=== PATIENT | female | born 2000 | race Caucasian/White ===

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

== ENCOUNTER 2022-04-20 18:06 | Emergency (ER) | payer OTHER, SELFPAY ==
[2022-04-20 18:10] VITALS: BP 109/67; PULSE 92; RESP 16; TEMP 37.2; O2SAT 100
--- NOTE | 2022-04-20 18:54 | ED.GENADULT ---
HPI - General Adult General Chief complaint: Skin/Abscess/Foreign Body Stated complaint: rash/sunburn Source: patient Mode of arrival: ambulatory Limitations: no limitations History of Present Illness HPI narrative: Patient presents for evaluation of skin issues. She states she was working outdoors 2 days ago when she developed a sunburn to her shoulders and back. She has experienced blistering in the affected area since that time. She has been applying aloe. She is also taking ibuprofen but states it is ineffective in pain reduction. She states her pain is interfering with her sleep pattern. She also states she was exposed to poison bret the same day and now has allergic response to her arms, abdomen and legs. She has had allergic response to poison bret in the past. In the past she tried topical steroid creams and had difficulty getting it to go away. Related Data Home Medications Medication Instructions Recorded Confirmed etonogestrel 68 mg subdermal 1 implant subdermal ONCE 06/26/20 04/20/22 implant (Nexplanon) Allergies Allergy/AdvReac Type Severity Reaction Status Date / Time No Known Allergies Allergy Verified 04/20/22 18:10 Review of Systems Review of Systems: CONSTITUTIONAL: Denies fever, chills, or sweats. EYES: Denies visual changes, redness, or discharge. ENT: Denies rhinorrhea, congestion, sore throat, or otalgia. CARDIOVASCULAR: Denies chest pain, palpitations, or edema. RESPIRATORY: Denies cough or dyspnea. GASTROINTESTINAL: Denies abdominal pain, nausea, vomiting, or diarrhea. GENITOURINARY: Denies dysuria or hematuria. SKIN: Reports sunburn to the bilateral shoulders and back. Reports itching and redness of bilateral upper and lower extremities and abdomen MUSCULOSKELETAL: Denies back pain, joint pain, or myalgia. NEUROLOGIC: Denies headache, numbness, dizziness, or weakness. PSYCHIATRIC: Denies anxiety or depression. [facility] Past Medical History Medical History Anxiety Depression Migraine Nexplanon insertion 11/21/2017 12/03/2019 Nexplanon removal 12/09/18 Partial thickness sunburn Surgical History Surgical History History of placement of ear tubes Family History Family History Mother No pertinent past medical history Social History Social History (Updated 04/20/22 @ 19:16 by Carlos Johnson, ELIZABETH, ) Smoking status: Current some day smoker Tobacco type: e-cigarettes/vaping Substance use: never Additional living arrangements comments: lives with boyfriend Gender identity (if verbalized by the patient): Female Sexual Orientation (if Verbalized by the Patient): Straight or Heterosexual Spiritual care concerns: No Exam Narrative: GENERAL: Well-appearing, well-nourished, and in no acute distress. HEAD: Normocephalic, atraumatic. EYES: PERRLA and EOMI. ENT: Nares clear, no rhinorrhea or epistaxis. Mucous membranes moist. Oropharynx without tonsillar hypertrophy exudate or other lesions. Bilateral TMs pearly bowden nonbulging NECK: Supple. No adenopathy or masses. No carotid bruits or JVD CHEST: Clear to auscultation. No respiratory distress. No wheezes rales or rhonchi HEART: Regular rate and rhythm. No murmur heard. Normal peripheral pulses. ABDOMEN: Soft, nontender, nondistended, normal active bowel sounds. EXTREMITIES: Normal range of motion. No edema. SKIN: There is erythema and blistering to the bilateral shoulders, scapulas and along posterior ribs bilaterally. This does not involved thoracic spinal region or overlying paraspinous muscles. There are streaking linear areas of erythema noted to bilateral upper and lower extremities. There are patchy areas of erythema streaking noted to the abdomen NEURO: No focal deficits. Alert and oriented x3. PSYCH: Normal mood and affect
== END 2022-04-20 18:47 | disposition home or self-care (01) ==
PROVIDERS: Emergency Provider Nurse Practitioner; PCP Pediatrics
DX: L23.7 Allergic contact dermatitis due to plants, except food (principal); L55.1 Sunburn of second degree; F17.290 Nicotine dependence, other tobacco product, uncomplicated
CPT/HCPCS: 99213; G0463

== ENCOUNTER 2022-12-27 16:59 | Outpatient (CLI) | payer OTHER, SELFPAY | END 2022-12-27 17:00 | disposition home or self-care (01) | LOC: ANHLAB 17:01 | PROVIDERS: PCP Pediatrics; Visit Provider Student in an Organized Health Care Education/Training Program | DX: R30.0 Dysuria (principal) | CPT/HCPCS: 87086; 87088 ==

== ENCOUNTER 2023-02-21 11:46 | Emergency (ER) | payer OTHER, SELFPAY ==
[2023-02-21 11:55] VITALS: BP 120/73; PULSE 128; RESP 20; TEMP 37.8; O2SAT 99
--- NOTE | 2023-02-21 12:15 | ED.URI ---
HPI - URI/Sore Throat General Chief Complaint: Upper Respiratory Infection Stated Complaint: Sore Throat/Back Pain/Fever Time Seen by Provider: 02/21/23 12:15 Source: patient Mode of arrival: ambulatory Limitations: no limitations History of Present Illness HPI Narrative: Patient is a 22-year-old female that presents with sore throat, ear fullness, cough and rib pain since last night. Patient states she had a fever of 102 at home last night, and fever was 99 at home this morning. Patient states sore throat, hoarseness is worsening today. Reports her ribs feel like they are being crushed inward and is tearful in room. Has taken ibuprofen at 9:00 a.m. this morning with no relief. Denies any congestion, shortness of breath, nausea, vomiting, diarrhea. Denies any sick contacts. Patient also reports frequent UTIs but states they never felt like this. Patient follows urology at [facility] and reports she has a refillable prescription for UTIs from a urologist, has no follow up appointment and was told she was too young for a cystoscopy. Denies any burning with urination, frequency, urgency. Related Data Home Medications Medication Instructions Recorded Confirmed etonogestrel 68 mg subdermal 1 implant subdermal ONCE 06/26/20 02/21/23 implant (Nexplanon) Allergies Allergy/AdvReac Type Severity Reaction Status Date / Time No Known Allergies Allergy Verified 02/21/23 11:59 Review of Systems Review of Systems: All systems reviewed & are unremarkable except as noted in HPI and below Constitutional: Constitutional: Reports body ache(s), Reports fever(s), Denies headache(s), Denies malaise and Denies weakness Eyes: Eyes: Denies loss of vision ENT: Denies otalgia, Denies headache(s), Denies nasal congestion, Denies sinus pain and Reports sore throat Cardiovascular: Cardiovascular: Denies chest pain, Denies irregular heart rhythm and Denies dyspnea Respiratory: Respiratory: Reports cough and Denies dyspnea Gastrointestinal: Gastrointestinal: Denies abdominal pain, Denies melena, Denies hematochezia, Denies diarrhea, Denies nausea and Denies vomiting Musculoskeletal: Musculoskeletal: Denies back pain, Denies myalgias and Denies arthralgias Integumentary/Breasts: Skin/Breast: Denies pruritus and Denies rash Neurologic: Denies headache(s), Denies loss of vision and Denies weakness Psychiatric: Psychiatric: Reports no additional psychiatric complaints PMFSH Past Medical History Medical History (Updated 02/21/23 @ 13:02 by Maci Soria APRN) Anxiety Depression Encounter for adjustment and management of other implanted devices Migraine Nexplanon insertion 11/21/2017 12/03/2019 Nexplanon removal 12/09/18 Partial thickness sunburn Surgical History Surgical History (Updated 12/02/22 @ 10:13 by Sylwia Betancourt CMA) History of placement of ear tubes Hx of tonsillectomy Family History Family History Mother No pertinent past medical history Social History Social History Smoking status: Current some day smoker Tobacco type: e-cigarettes/vaping Substance use: never Additional living arrangements comments: lives with boyfriend Gender identity (if verbalized by the patient): Female Sexual Orientation (if Verbalized by the Patient): Straight or Heterosexual Spiritual care concerns: No Comments At time of signature, agree with nursing past medical, surgical, social and family history. There is no relevant family history pertinent to the presenting complaint. Exam Const: General: cooperative, healthy appearing, comfortable, no acute distress and well nourished Nutritional Appearance: well nourished Orientation/consciousness: patient oriented x3 Limitations: no limitations HENMT: Head: normal to inspection, normocephalic and atraumatic Ears: external ears normal and TM's normal bilatera
== END 2023-02-21 13:15 | disposition home or self-care (01) ==
PROVIDERS: Emergency Provider Nurse Practitioner Family; PCP Pediatrics
DX: N39.0 Urinary tract infection, site not specified (principal); J02.9 Acute pharyngitis, unspecified; Z20.822 Contact with and (suspected) exposure to COVID-19; F17.290 Nicotine dependence, other tobacco product, uncomplicated
CPT/HCPCS: 81003; 87077; 87081; 87086; 87186; 87426; 87804; 87880; 99213; C9803; G0463

== ENCOUNTER 2023-04-01 08:06 | Emergency (ER) | payer OTHER, SELFPAY ==
--- NOTE | 2023-04-01 08:07 | ED.SKABFB ---
HPI - Skin/Abscess/Foreign Bdy General Chief complaint: Skin/Abscess/Foreign Body Stated complaint: Rash Time Seen by Provider: 04/01/23 08:07 Source: patient Mode of arrival: ambulatory Limitations: no limitations History of Present Illness HPI narrative: Glo is a 22-year-old female patient presenting to the clinic today with complaints of a rash over the last 1-2 days. She reports she is unaware if this may be poison bret versus scabies. 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 Has had scabies and poison bret before. Has not been anywhere that she has been exposed to poison bret. States that her boyfriend has had scabies recently as well. Related Data Home Medications Medication Instructions Recorded Confirmed etonogestrel 68 mg subdermal 1 implant subdermal ONCE 06/26/20 04/01/23 implant (Nexplanon) Allergies Allergy/AdvReac Type Severity Reaction Status Date / Time No Known Allergies Allergy Verified 02/21/23 11:59 Review of Systems Review of Systems: Pertinent positives per HPI. Patient denies any fever, chills, headache, visual changes, dizziness, cough, runny nose, sore throat, shortness of breath, chest pain, palpitations, nausea, vomiting, diarrhea, constipation, abdominal pain, or any urinary issues. [facility] Past Medical History Medical History Anxiety Depression Encounter for adjustment and management of other implanted devices Migraine Nexplanon insertion 11/21/2017 12/03/2019 Nexplanon removal 12/09/18 Partial thickness sunburn Surgical History Surgical History History of placement of ear tubes Hx of tonsillectomy Family History Family History Mother No pertinent past medical history Social History Social History Smoking status: Current some day smoker Tobacco type: e-cigarettes/vaping Substance use: never Additional living arrangements comments: lives with boyfriend Gender identity (if verbalized by the patient): Female Sexual Orientation (if Verbalized by the Patient): Straight or Heterosexual Spiritual care concerns: No Comments At the time of my signature, I reviewed and agree with the nursing past medical, surgical, social, and family history. There is no relevant family history pertinent to the patient complaint. Exam Narrative: General: Well-developed, well nourished, in no apparent distress Head: Normocephalic, atraumatic. Cardio: Regular rate and rhythm, s1 and s2 normal, no murmur appreciated. Resp: Clear to auscultation bilaterally, no rhonchi, rales, wheezing or rubs. Integumentary: Regino Ramirez, warm, and dry, intact without lesion, red,itchy, mildly raised, burrows like presentation to the hands, forearms, upper arm, right anterior chest wall, and right axilla Course Course Emergency Course: Portions of this record may have been created with voice recognition software. Level of Care: Express Care Visit Vital Signs Vital signs: Vital signs reviewed MDM - Skin/Abscess/Foreign Bdy MDM Narrative Medical decision making narrative: At the time of visit patient is resting comfortably on the exam table. I suspect patient has a scabies infestation. Will send in prescription for prednisone and permethrin cream. Supportive measures were discussed with the patient she voiced understanding of discharge instructions and agrees to treatment plan Differential Diagnosis Differential diagnosis: Likely abscess of skin or subcutaneous tissue, urticaria, allergic reaction to drug, cellulitis, eczema, insect bites, impetigo, contact dermatitis and other (Scabies) Discharge Plan Discharge Clinical Impression: Scabies Patient Disposition: Home, Self-Care Condition: Stable Instructions: Antibiotic Form, Scabi
[2023-04-01 08:15] VITALS: BP 117/73; PULSE 120; RESP 16; TEMP 37.2; O2SAT 99
== END 2023-04-01 08:27 | disposition home or self-care (01) ==
PROVIDERS: Emergency Provider Nurse Practitioner Family; PCP Pediatrics
DX: B86 Scabies (principal); F17.219 Nicotine dependence, cigarettes, with unspecified nicotine-induced disorders
CPT/HCPCS: 99213; G0463

== ENCOUNTER 2023-06-09 09:03 | Emergency (ER) | payer OTHER, SELFPAY ==
--- NOTE | 2023-06-09 09:09 | ED.FEMALEGU ---
HPI - Female Genitourinary General Chief complaint: Urogenital-Female Stated complaint: UTI Time Seen by Provider: 06/09/23 09:33 Source: patient and RN notes reviewed Mode of arrival: ambulatory Limitations: no limitations History of Present Illness HPI Narrative: 22-year-old female presents with concern for urinary tract infection. She reports history of frequent UTIs, her last UTI in February. She reports fever, chills, back pain, abdominal discomfort, nausea. She denies abnormal vaginal discharge. MD elicited complaint: UTI Related Data Home Medications Medication Instructions Recorded Confirmed etonogestrel 68 mg subdermal 1 implant subdermal ONCE 06/26/20 06/09/23 implant (Nexplanon) Allergies Allergy/AdvReac Type Severity Reaction Status Date / Time No Known Allergies Allergy Verified 06/09/23 09:17 Review of Systems Review of Systems: CONSTITUTIONAL: Reports malaise, chills, sweats, fever. CARDIOVASCULAR: Denies chest pain, palpitations, or edema. RESPIRATORY: Denies cough or dyspnea. GASTROINTESTINAL: Denies abdominal pain, vomiting, diarrhea. Reports nausea GENITOURINARY: Reports dysuria. Denies frequency, urgency, suprapubic pressure. Denies flank pain or hematuria. SKIN: Denies rash or itching. MUSCULOSKELETAL: Reports back pain, myalgia. All systems reviewed & are unremarkable except as noted in HPI and below PMFSH Past Medical History Medical History Anxiety Depression Encounter for adjustment and management of other implanted devices Migraine Nexplanon insertion 11/21/2017 12/03/2019 Nexplanon removal 12/09/18 Partial thickness sunburn Surgical History Surgical History History of placement of ear tubes Hx of tonsillectomy Family History Family History Mother No pertinent past medical history Social History Social History Smoking status: Current some day smoker Tobacco type: e-cigarettes/vaping Substance use: never Additional living arrangements comments: lives with boyfriend Gender identity (if verbalized by the patient): Female Sexual Orientation (if Verbalized by the Patient): Straight or Heterosexual Spiritual care concerns: No Comments At time of signature, agree with nursing past medical, surgical, social and family history. There is no relevant family history pertinent to the presenting complaint Exam Narrative: GENERAL: Well-appearing, well-nourished, and in no acute distress. HEAD: Normocephalic. EYES: PERRLA, conjunctivae clear. NECK: Supple. No lymphadenopathy CHEST: Clear to auscultation. No respiratory distress. HEART: Regular rate and rhythm. ABDOMEN: Soft, suprapubic discomfort, nondistended, normal active bowel sounds, no palpable or pulsatile masses, no guarding. Mild bilateral cVA tenderness SKIN: Warm, dry, no rash. NEURO: Alert and oriented x3. PSYCH: Normal mood and affect Course Course Emergency Course: Patient is aware of diagnosis, understands and agrees to treatment plan. Anticipatory guidance given. Patient agrees to follow-up as directed and is aware of reasons to seek care at the emergency department. Portions of this record may have been created with voice recognition software Level of Care: Express Care Visit Vital Signs Vital signs: Reviewed. MDM - Female Genitourinary MDM Narrative Medical decision making narrative: Exam findings and UA show no acute concerns or changes; patient is non-toxic appearing and is in no distress. Patient is appropriate for outpatient treatment and follow-up. Differential Diagnosis Differential diagnosis: Likely urinary tract infection and cystitis Critical Care Time Critical Care Time Critical Care Time: No Discharge Axel
[2023-06-09 09:20] VITALS: BP 104/68; PULSE 115; RESP 16; TEMP 36.9; O2SAT 100
== END 2023-06-09 09:46 | disposition home or self-care (01) ==
PROVIDERS: Emergency Provider Nurse Practitioner; PCP Family Medicine
DX: N39.0 Urinary tract infection, site not specified (principal); F17.290 Nicotine dependence, other tobacco product, uncomplicated
CPT/HCPCS: 81003; 87077; 87086; 87186; 99213; G0463

== ENCOUNTER 2023-07-03 15:07 | Emergency (ER) | payer OTHER, SELFPAY ==
[2023-07-03 15:08] VITALS: BP 116/68; PULSE 92; RESP 22; TEMP 36.3; O2SAT 100
[2023-07-03 15:33] LABS: Basophils Percent Auto 0.5 % (0.2-1.2); Eosinophils Percent Auto 0.4 % (0-4.4); Hematocrit 42.8 % (37.0-47.0); Hemoglobin 14.8 g/dL (12.0-15.0); Immature Granulocyte Absolute 0.02 K/mm3 (0.00-0.031); Immature Granulocyte Percent A 0.2 % (0-0.5); Lymphocytes Absolute Auto 1.85 K/mm3 (0.9-3.2); Lymphocytes Percent Auto 21.9 % (18.3-44.2); Mean Corpuscular HGB Conc 34.6 g/dl (32-36); Mean Corpuscular Hemoglobin 32.2 pg (26-34); Mean Platelet Volume 9.1 fl (7.4-10.4); Monocytes Absolute Auto 0.6 K/mm3 (0.1-0.6); Monocytes Percent Auto 6.9 % (2.6-8.5); Neutrophils Absolute Auto 5.9 K/mm3 (1.3-6.7); Neutrophils Percent Auto 70.1 % (45.5-73.1); Platelet Count Result 391 k/mm3 (150-375); Red Cell Distribution Width 11.8 % (11.5-14.5); White Blood Count 8.4 K/mm3 (4.5-10.0)
[2023-07-03 15:42] LABS: Ethanol < 10 mg/dL (<10)
[2023-07-03 15:42] LABS: Alanine Aminotransferase 22 U/L (6-35); Albumin Level 4.7 g/dL (3.5-5.1); Alkaline Phosphatase 60 U/L (38-126); Anion Gap 11 mmol/L (8-16); Aspartate Amino Transferase 30 U/L (14-36); Bilirubin,Total 2.2 mg/dL (0.2-1.3); Blood Urea Nitrogen 14 mg/dL (7-17); Calcium 9.4 mg/dL (8.4-10.2); Carbon Dioxide 24 mmol/L (22-30); Chloride 101 mmol/L (98-107); Estimated CRCL calculation 94 ml/min; Estimated Glomerular Filt Rate > 60; Glucose 103 mg/dL (65-110); Sodium 136 mmol/L (137-145)
[2023-07-03 16:02] LABS: Appearance Urine Clear (Clear); Bacteria Urine None Seen /hpf; Bilirubin Urine Negative (Negative); Blood Urine 3+ (Negative); Color Urine Yellow (Yellow); Glucose Urine UA Negative (Negative); Ketones Urine Negative (Negative); Leukocyte Esterase Ur Negative LEU/UL (Negative); Nitrate Urine Negative (Negative); Non Pathogenic Casts 0-2; Protein Urine Negative (Negative); Specific Grav Ur 1.019 (1.001-1.035); Squamous Epithelial Cell Urine Occasional /hpf (Few); Urobilinogen Urine 0.2 mg/dL (<2.0); WBC Urine 0-5 /hpf
[2023-07-03 16:06] LABS: Add Urine Microscopic? YES
[2023-07-03 16:09] LABS: Influenza A QL RT-PCR Negative (Negative); Influenza B QL RT-PCR Negative (Negative); SARS-CoV-2 RNA PCR Positive (Negative)
[2023-07-03 16:12] LABS: Barbiturate Screen Urine Negative (Negative)
[2023-07-03 16:20] LABS: Benzodiazepines Screen Urine Negative (Negative)
[2023-07-03 16:27] LABS: Cannabinoid Screen Urine Positive (Negative); Cocaine Screen Urine Negative (Negative); Methadone Screen Urine Negative (Negative); Opiate Screen Urine Negative (Negative); Phencyclidine Screen Urine Negative (Negative)
--- NOTE | 2023-07-03 16:50 | ED.ANXIETY ---
HPI - Anxiety General Chief Complaint: Anxiety Stated Complaint: anxiety, depression Time Seen by Provider: 07/03/23 16:10 History of Present Illness HPI narrative: Patient is a 22-year-old female with a history of anxiety, depression presenting with anxiety. Patient states that she has a history of depression and anxiety. She was on sertraline several years ago but she had to discontinue it due to financial reasons. States that on Friday she went on a drinking binge and since that time has been unable to control her anxiety. She denies SI or HI. States that normally she is able to calm herself down but she has not been able to. States that she has chest tightness associated with anxiety. She called her PCP today who advised that she come in for evaluation. Denies further complaints. Related Data Home Medications Medication Instructions Recorded Confirmed etonogestrel 68 mg subdermal 1 implant subdermal ONCE 06/26/20 06/09/23 implant (Nexplanon) Allergies Allergy/AdvReac Type Severity Reaction Status Date / Time No Known Allergies Allergy Verified 06/09/23 09:17 Review of Systems Review of Systems: All systems reviewed & are unremarkable except as noted in HPI and below PMFSH Past Medical History Medical History Anxiety Depression Encounter for adjustment and management of other implanted devices Migraine Nexplanon insertion 11/21/2017 12/03/2019 Nexplanon removal 12/09/18 Partial thickness sunburn Surgical History Surgical History History of placement of ear tubes Hx of tonsillectomy Family History Family History Mother No pertinent past medical history Social History Social History Smoking status: Current some day smoker Tobacco type: e-cigarettes/vaping Substance use: never Additional living arrangements comments: lives with boyfriend Gender identity (if verbalized by the patient): Female Sexual Orientation (if Verbalized by the Patient): Straight or Heterosexual Spiritual care concerns: No Exam Narrative: GENERAL: Well-appearing, well-nourished, and in no acute distress. Pleasant and cooperative HEAD: Normocephalic, atraumatic. EYES: PERRLA and EOMI. ENT: Nares clear, no rhinorrhea or epistaxis. Mucous membranes moist. NECK: Supple. CHEST: No respiratory distress. HEART: Regular rate and rhythm ABDOMEN: Nondistended EXTREMITIES: Normal range of motion. No edema. SKIN: Warm, dry, no rash. NEURO: No focal deficits. Alert and oriented x3. PSYCH: Anxious, no SI/HI Course Vital Signs Vital signs: Vital Signs Temperature 97.3 F L 07/03/23 15:08 Pulse Rate 92 07/03/23 15:08 Respiratory Rate 22 H 07/03/23 15:08 Blood Pressure 116/68 07/03/23 15:08 Pulse Oximetry 100 07/03/23 15:08 Temperature 97.3 F L 07/03/23 15:08 Pulse Rate 92 07/03/23 15:08 Respiratory Rate 22 H 07/03/23 15:08 Blood Pressure 116/68 07/03/23 15:08 Pulse Oximetry 100 07/03/23 15:08 MDM - Anxiety MDM Narrative Medical decision making narrative: Patient is a 22-year-old female presenting with anxiety. Vitals are stable. Exam remarkable for the above. Patient denies SI or HI. States that she really just needs something to help calm herself down. States that she has an appointment with a psychiatrist in a few weeks. Blood work is unremarkable. UA is unremarkable. Patient is positive for COVID-19. She denies any symptoms related to this. We will give a dose of Atarax and send in for a short prescription. Appropriate return precautions given. Patient feels comfortable going home and will follow-up closely with her PCP. Discharged in stable condition. Differential Diagnosis Differential diagnosis: Likely hyperventilation,
[2023-07-03 17:04] LABS: Amphetamine Screen Urine Negative (Negative)
[2023-07-03] MEDS: hydrOXYzine HCL 25 MG TABLET PO (17:20)
== END 2023-07-03 17:30 | disposition home or self-care (01) ==
PROVIDERS: Student in an Organized Health Care Education/Training Program; Emergency Provider Emergency Medicine; PCP Family Medicine
DX: F41.9 Anxiety disorder, unspecified (principal); U07.1 COVID-19; F17.290 Nicotine dependence, other tobacco product, uncomplicated
CPT/HCPCS: 36415; 80053; 80307; 81001; 81025; 84443; 85025; 87636; 99283; A9270

== ENCOUNTER 2023-08-02 12:02 | Emergency (ER) | payer OTHER, SELFPAY ==
[2023-08-02 12:09] VITALS: BP 92/76; PULSE 100; RESP 16; TEMP 36.9; O2SAT 100
--- NOTE | 2023-08-02 12:29 | ED.FEMALEGU ---
HPI - Female Genitourinary General Chief complaint: Urogenital-Female Stated complaint: UTI Time Seen by Provider: 08/02/23 12:23 Source: patient and RN notes reviewed Mode of arrival: ambulatory Limitations: no limitations History of Present Illness HPI Narrative: 22-year-old female presents concern for urinary tract infection. She reports history of frequent urinary tract infections. She reports bilateral low back pain, chills, nausea. She denies frequency, urgency, dysuria. Reports these are typical for her symptoms when she gets urinary tract infection. MD elicited complaint: UTI Related Data Home Medications Medication Instructions Recorded Confirmed etonogestrel 68 mg subdermal 1 implant subdermal ONCE 06/26/20 08/02/23 implant (Nexplanon) Allergies Allergy/AdvReac Type Severity Reaction Status Date / Time No Known Allergies Allergy Verified 08/02/23 12:17 Review of Systems Review of Systems: CONSTITUTIONAL: Denies malaise, sweats, or fever. Reports chills CARDIOVASCULAR: Denies chest pain, palpitations, or edema. RESPIRATORY: Denies cough or dyspnea. GASTROINTESTINAL: Denies abdominal pain, vomiting, diarrhea. Reports nausea GENITOURINARY: Denies dysuria, frequency, urgency, suprapubic pressure. Denies flank pain or hematuria. SKIN: Denies rash or itching. MUSCULOSKELETAL: Reports bilateral low back pain. Denies myalgia. All systems reviewed & are unremarkable except as noted in HPI and below PMFSH Past Medical History Medical History Anxiety Depression Encounter for adjustment and management of other implanted devices Migraine Nexplanon insertion 11/21/2017 12/03/2019 Nexplanon removal 12/09/18 Partial thickness sunburn Surgical History Surgical History History of placement of ear tubes Hx of tonsillectomy Family History Family History Mother No pertinent past medical history Social History Social History Smoking status: Current some day smoker Tobacco type: e-cigarettes/vaping Substance use: never Additional living arrangements comments: lives with boyfriend Gender identity (if verbalized by the patient): Female Sexual Orientation (if Verbalized by the Patient): Straight or Heterosexual Spiritual care concerns: No Comments At time of signature, agree with nursing past medical, surgical, social and family history. There is no relevant family history pertinent to the presenting complaint Exam Narrative: GENERAL: Well-appearing, well-nourished, and in no acute distress. HEAD: Normocephalic. EYES: PERRLA, conjunctivae clear. NECK: Supple. No lymphadenopathy CHEST: Clear to auscultation. No respiratory distress. HEART: Regular rate and rhythm. ABDOMEN: Soft, nontender upon palpation, nondistended, normal active bowel sounds, no palpable or pulsatile masses, no guarding. Bilateral CVA tenderness SKIN: Warm, dry, no rash. NEURO: Alert and oriented x3. PSYCH: Normal mood and affect Course Course Emergency Course: Discussed UA results with patient discussed waiting list start antibiotic for urine culture results versus starting antibiotic now. Patient prefers to start antibiotic now because she feels that these are very consistent with her UTI symptoms. Patient is aware of diagnosis, understands and agrees to treatment plan. Anticipatory guidance given. Patient agrees to follow-up as directed and is aware of reasons to seek care at the emergency department. Portions of this record may have been created with voice recognition software Level of Care: Express Care Visit Vital Signs Vital signs: Vital Signs Temperature 98.4 F 08/02/23 12:09 Pulse Rate 100 08/02/23 12:09 Respiratory Rate 16 08/02/23 12:09 [place]
== END 2023-08-02 12:35 | disposition home or self-care (01) ==
PROVIDERS: Emergency Provider Nurse Practitioner; PCP Family Medicine
DX: M54.50 Low back pain, unspecified (principal); R68.83 Chills (without fever); R11.0 Nausea; F17.219 Nicotine dependence, cigarettes, with unspecified nicotine-induced disorders
CPT/HCPCS: 81003; 81025; 87086; 87088; 99213; G0463

== ENCOUNTER 2023-11-10 17:14 | Emergency (ER) | payer SELFPAY ==
[2023-11-10 17:26] VITALS: BP 109/76; PULSE 86; RESP 18; TEMP 37.2; O2SAT 100
--- NOTE | 2023-11-10 17:48 | ED.FEMALEGU ---
HPI - Female Genitourinary General Chief complaint: Urogenital-Female Stated complaint: urinary issue Time Seen by Provider: 11/10/23 17:49 Source: patient Mode of arrival: ambulatory Limitations: no limitations History of Present Illness HPI Narrative: 23-year-old female presents complaint of urinary frequency, dysuria, strong odor to urine for 2 days. Afebrile. History of several UTIs. Last 1 was about a month ago. Does have a urologist. denies nausea vomiting, no abdominal pain. All systems reviewed and negative except as noted above. Related Data Allergies Allergy/AdvReac Type Severity Reaction Status Date / Time No Known Allergies Allergy Verified 11/10/23 17:32 Review of Systems Review of Systems: CONSTITUTIONAL: Denies fever, chills, or sweats. EYES: Denies visual changes, redness, or discharge. ENT: Denies rhinorrhea, congestion, sore throat, or otalgia. CARDIOVASCULAR: Denies chest pain, palpitations, or edema. RESPIRATORY: Denies cough or dyspnea. GASTROINTESTINAL: Denies abdominal pain, nausea, vomiting, or diarrhea. GENITOURINARY: Reports dysuria, frequency . Denies hematuria. SKIN: Denies rash or itching. MUSCULOSKELETAL: Denies back pain, joint pain, or myalgia. NEUROLOGIC: Denies headache, numbness, or weakness. PSYCHIATRIC: Denies anxiety or depression. All other systems reviewed are negative, except as documented in HPI. FOR[facility]LY [facility], [facility] Past Medical History Medical History Anxiety Depression Encounter for adjustment and management of other implanted devices Migraine Nexplanon insertion 11/21/2017 12/03/2019 Nexplanon removal 12/09/18 Partial thickness sunburn Surgical History Surgical History History of placement of ear tubes Hx of tonsillectomy Family History Family History Mother No pertinent past medical history Social History Social History Smoking status: Current some day smoker Tobacco type: e-cigarettes/vaping Substance use: never Additional living arrangements comments: lives with boyfriend Gender identity (if verbalized by the patient): Female Sexual Orientation (if Verbalized by the Patient): Straight or Heterosexual Spiritual care concerns: No Comments At time of signature, agree with nursing past medical, surgical, social and family history. There is no relevant family history pertinent to the presenting complaint. Exam Narrative: GENERAL: This is a well-nourished, well-developed patient, in no apparent distress. HEAD: normocephalic, atraumatic. EYES: PERRL. Sclera clear/white. Vision is grossly intact. EARS: External ears normal NOSE: External nose normal NECK: Neck supple, non-tender without lymphadenopathy, masses or thyromegaly. CARDIOVASCULAR: Regular rate and rhythm without murmurs, gallops, or rubs. RESPIRATORY: Clear to auscultation. Breath sounds equal bilaterally. No wheezes, rales, or rhonchi. SKIN: warm, Dry, intact with no suspicious lesions or rash, good texture and turgor. NEURO: awake, alert, and oriented to person, place and time. There were no obvious focal neurologic abnormalities. EXTREMITIES: No joint tenderness, effusion, or edema noted. Course Course Level of Care: Express Care Visit Vital Signs Vital signs: Vital Signs Temperature 37.2 C 11/10/23 17:26 Pulse Rate 86 11/10/23 17:26 Respiratory Rate 18 11/10/23 17:26 Blood Pressure 109/76 11/10/23 17:26 Pulse Oximetry 100 11/10/23 17:26 Oxygen Delivery Room Air 11/10/23 17:26 Temperature 37.2 C 11/10/23 17:26 Pulse Rate 86 11/10/23 17:26 Respiratory Rate 18 11/10/23 17:26 Blood Pressure 109/76 11/10/23 17:26 Pulse Oximetry 100 11/10/23 17:26 Oxygen Delivery Room Air 11/10/23 17:26
== END 2023-11-10 18:00 | disposition home or self-care (01) ==
PROVIDERS: Emergency Provider Nurse Practitioner Family; PCP Family Medicine
DX: N39.0 Urinary tract infection, site not specified (principal)
CPT/HCPCS: 81003; 87086; 99213; G0463

== ENCOUNTER 2024-05-03 17:46 | Emergency (ER) | payer OTHER, SELFPAY ==
--- NOTE | ~2024-05-03 | XR_ITS ---
EXAM: XR forearm RT 2V DATE: 05/03/2024 18:04 HISTORY: pain after falling onto a broom - hit mid forearm . COMPARISON: None available. FINDINGS: Normal mineralization. No fracture or dislocation. No lytic or blastic lesion. Joint space s are maintained. No erosion or periosteal change. Soft tissues within normal limits. IMPRESSION: No acute osseous finding in the right forearm. Reviewed, dictated and finalized at location K.
[2024-05-03 17:57] VITALS: BP 95/67; PULSE 100; RESP 16; TEMP 37.2; O2SAT 100
--- NOTE | 2024-05-03 17:58 | ED.UPPEXIN ---
HPI - Extremity Injury (Upper) General Chief Complaint: Extremity Injury, Upper Stated Complaint: Fall Injury, Right Arm Pain Time Seen by Provider: 05/03/24 18:40 Source: patient Mode of arrival: ambulatory Limitations: no limitations History of Present Illness HPI narrative: 23 y/o female presented for c/o right forearm pain with bruising after injury this morning. States she tripped in her kitchen, and fell landing the arm on a broom handle. Has applied ice today. Denies numbness, tingling or weakness. 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 She has been able to work all day. Related Data Home Medications Medication Instructions Recorded Confirmed No Home Medications 05/03/24 05/03/24 Allergies Allergy/AdvReac Type Severity Reaction Status Date / Time No Known Allergies Allergy Verified 05/03/24 17:49 Review of Systems Review of Systems: CONSTITUTIONAL: Denies body aches, fever, chills CARDIOVASCULAR: Denies chest pain, palpitations, or edema. RESPIRATORY: Denies cough or dyspnea. SKIN: Denies rash, itching, or wounds. MUSCULOSKELETAL: reports right forearm pain Denies back pain, joint pain, or myalgia. NEUROLOGIC: Denies headache, numbness, tingling, or weakness. All systems reviewed & are unremarkable except as noted in HPI and below PMFSH Past Medical History Medical History Anxiety Depression Encounter for adjustment and management of other implanted devices Migraine Nexplanon insertion 11/21/2017 12/03/2019 Nexplanon removal 12/09/18 Partial thickness sunburn Surgical History Surgical History History of placement of ear tubes Hx of tonsillectomy Family History Family History Mother No pertinent past medical history Social History Social History Smoking status: Current some day smoker Tobacco type: e-cigarettes/vaping Substance use: never Additional living arrangements comments: lives with boyfriend Gender identity (if verbalized by the patient): Female Sexual Orientation (if Verbalized by the Patient): Straight or Heterosexual Spiritual care concerns: No Comments At time of signature, I have reviewed and agree with nursing past medical, surgical, social and family history unless otherwise noted. Please see nursing chart for further information. There is no relevant family history pertinent to the presenting complaint Exam Narrative: GENERAL: Well-appearing CHEST: Speaks in full sentences. No respiratory distress. HEART: Regular rate and rhythm. Normal and equal peripheral pulses. EXTREMITIES: RUE has normal strength and sensation, normal range of motion. 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 Mild round area of bruising to distal ulna, with point tenderness. No open wounds or obvious deformity; alignment normal, pulse palpable and equal bilaterally, skin warm, dry, pink. Capillary refill less than 3 seconds. SKIN: Warm, dry, no rash. NEURO: Alert and oriented x3. PSYCH: Normal mood and affect Course Course Emergency Course: Patient is aware of diagnosis, understands and agrees to treatment plan. Anticipatory guidance given. Patient agrees to follow-up as directed and is aware of reasons to seek care at the emergency department. Portions of this record may have been created with voice recognition software Level of Care: Express Care Visit Vital Signs Vital signs: Vital Signs Temperature 98.9 F 05/03/24 17:57 Pulse Rate 100 05/03/24 17:57 Respiratory Rate 16 05/03/24 17:57 Blood Pressure 95/67 L 05/03/24 17:57 Pulse Oximetry 100 05/03/24 17:57 Oxygen Delivery Room Air 05/03/24 17:57 Temperature 98.9 F 05/03/24 17:57 Pulse Rate 100 05/03/24 17:57 Respiratory Rate 16
== END 2024-05-03 18:50 | disposition home or self-care (01) ==
PROVIDERS: Emergency Provider Nurse Practitioner Family
DX: S50.11XA Contusion of right forearm, initial encounter (principal); W01.0XXA Fall on same level from slipping, tripping and stumbling without subsequent striking against object, initial encounter; F17.290 Nicotine dependence, other tobacco product, uncomplicated
CPT/HCPCS: 73090; 99213; G0463

== ENCOUNTER 2024-07-05 15:40 | Emergency (ER) | payer OTHER, SELFPAY ==
[2024-07-05 15:49] VITALS: BP 98/66; PULSE 84; RESP 16; TEMP 36.8; O2SAT 100
--- NOTE | 2024-07-05 16:01 | ED.FEMALEGU ---
HPI - Female Genitourinary General Chief complaint: Urogenital-Female Stated complaint: Uti Symptoms Time Seen by Provider: 07/05/24 15:55 Source: patient Mode of arrival: ambulatory Limitations: no limitations History of Present Illness HPI Narrative: Glo is a 23-year-old female patient presenting to the clinic today with complaints of a possible UTI. She is reporting some flank pain bilaterally with some lower abdominal discomfort. States that she had a urinary tract infection 2 weeks ago and was seen at [place] and was prescribed Macrobid initially make contacted her and told her they need to change her antibiotic to ampicillin. She finished up the antibiotic and felt better but then started having yeast like symptoms and then took Monistat. States she felt better after the Monistat treatment however 2 days ago she developed the current symptoms that she is experiencing. She denies any fever, chills, or nausea vomiting. She is currently on her menses. Related Data Allergies Allergy/AdvReac Type Severity Reaction Status Date / Time No Known Allergies Allergy Verified 05/03/24 17:49 Review of Systems Review of Systems: Pertinent positives per HPI. Patient denies any fever, chills, rash, headache, visual changes, dizziness, cough, runny nose, sore throat, shortness of breath, chest pain, palpitations, nausea, vomiting, diarrhea, constipation PMFSH Past Medical History Medical History Anxiety Depression Encounter for adjustment and management of other implanted devices Migraine Nexplanon insertion 11/21/2017 12/03/2019 Nexplanon removal 12/09/18 Partial thickness sunburn Surgical History Surgical History History of placement of ear tubes Hx of tonsillectomy Family History Family History Mother No pertinent past medical history Social History Social History Smoking status: Current some day smoker Tobacco type: e-cigarettes/vaping Substance use: never Additional living arrangements comments: lives with boyfriend Gender identity (if verbalized by the patient): Female Sexual Orientation (if Verbalized by the Patient): Straight or Heterosexual Spiritual care concerns: No Comments At the time of my signature, I reviewed and agree with the nursing past medical, surgical, social, and family history. There is no relevant family history pertinent to the patient complaint. Exam Narrative: General: Well-developed, well nourished, in no apparent distress. Head: Normocephalic, atraumatic. Cardio: Regular rate and rhythm, s1 and s2 normal, no murmur appreciated. Resp: Clear to auscultation bilaterally, no rhonchi, rales, wheezing or rubs. Abdomen: Soft, pliable, bowel sounds present in all quadrants, tender to palpation over the suprapubic bladder, no organomegly, bilateral CVAT tenderness left greater than right. Course Course Emergency Course: Portions of this record may have been created with voice recognition software. Level of Care: Express Care Visit Vital Signs Vital signs: Vital Signs Temperature 36.8 C 07/05/24 15:49 Pulse Rate 84 07/05/24 15:49 Respiratory Rate 16 07/05/24 15:49 Blood Pressure 98/66 L 07/05/24 15:49 Pulse Oximetry 100 07/05/24 15:49 Temperature 36.8 C 07/05/24 15:49 Pulse Rate 84 07/05/24 15:49 Respiratory Rate 16 07/05/24 15:49 Blood Pressure 98/66 L 07/05/24 15:49 Pulse Oximetry 100 07/05/24 15:49 Vital signs reviewed MDM - Female Genitourinary MDM Narrative Medical decision making narrative: At the time of visit patient is resting comfortably on the exam table. Patient appears to be nontoxic. UA: Urine positive for nitrates, leukocytes, protein, and blood. Patient is currently on her menses
[2024-07-05 16:07] LABS: EDUAAPPEAR Cloudy; EDUABILI Negative; EDUABLOOD 3+; EDUACOLOR1 Light/Pale; EDUAGLUCOSE Negative; EDUAKETONE Negative; EDUALEUKO 1+; EDUANITRATE Positive; EDUAPH 6.5; EDUAPROTEIN 2+; EDUAUROBILI 0.2
== END 2024-07-05 16:42 | disposition home or self-care (01) ==
PROVIDERS: Emergency Provider Nurse Practitioner Family
DX: N39.0 Urinary tract infection, site not specified (principal); B96.20 Unspecified Escherichia coli [E. coli] as the cause of diseases classified elsewhere; F17.290 Nicotine dependence, other tobacco product, uncomplicated
CPT/HCPCS: 81003; 87077; 87086; 87088; 87186; 99213; G0463

== ENCOUNTER 2025-05-26 18:26 | Inpatient (IN) | payer OTHER, SELFPAY ==
[2025-05-26] VITALS (51 sets, daily range): BP systolic 104–123; BP diastolic 44–92; PULSE 55–144; TEMP 36.7–37.4; O2SAT 76–100; BMI 21.7
--- OUTSIDE RECORDS SUMMARY | 2025-05-26 18:31 | XMS_ITS | Clinical Summary ---
Author Organization [facility] Address [address] [place] [address] Care Team Providers Care Rail Specialist Name Role Phone Alicia Barrios MD Primary Care Provider [phone] Source Comments [facility],non-owned Affiliates and Associated Physician Practices is amultiple site organization consisting of ambulatory clinics and hospital sitesin [place], [place], [place] and [place]. This disclosure is being madepursuant to the Care Everywhere program and may not contain all information available regarding this patient. Last updated 18.[facility] Stupeflix Allergies No known active allergies Medications * Be aware that medications may not be up to date on this document. Alwaysverify current medications with the patient. cetirizine (ZYRTEC) 10 MG tablet Take 10 mg by mouth once daily 07/26/2020 Active Etonogestrel (NEXPLANON SC) Activ e Ferrous Sulfate (IRON SUPPLEMENT PO) Active Cranberry-Vit C-Lactobacillus (RA CRANBERRY SUPPLEMENTS PO) Acti ve hydrOXYzine hcl (ATARAX) 25 MG tablet TAKE 1 TABLET BY MOUTH TWICE A DAY NEEDED ANXIETY ATTACKS. 05/14/2021 Active Active Problems Problem Noted Date Diagnosed Date Severe headache 08/19/2018 Assessment & Plan (08/19/2018 7:29 AM CDT): Assessment: Differential for spells includes ocular migraine vs optic neuritis vs tension headache. MRI / MRA reassuring for ischemic stroke, mass, and thrombus respectively. Patient improved with migraine cocktail, which makes occular migraine more likely, but will need MR orbit to rule out optic neuritis. Will admit to neurology for further observation in anticipation for MRI tomorrow. Plan: - Admit to neurology (Gregg) - Vitals / neuro checks q8 - MR orbit w/wo contrast with fat suppression in AM - Optho following, appreciate recs - PRN naproxen / reglan / zofran for pain control Vision loss of left eye 08/18/2018 Overview (11/21/2018): Glo was initially admitted from 08/18/18-08/20/18 after an episode of moderate occipital headache associated with left eye blurred vision and L arm parasthesias. At initial onset of symptoms she reported blurred vision in all quadrants of her eye and which subsequently improved throughout the day. MRI w/wo contrast, MRA/MRV, and MR orbits all returned normal. Opthlamology was consulted who performed visual testing including refractive testing involving fogging of the unaffected eye, and which produced no change in visual acuity, suggesting non-organic etiology. 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 Gender Identity Not on file Sexual Orientation Not on file Last Filed Vital Signs Vital Sign Reading Time Taken Comments Blood Pressure 114/72 06/14/2021 9:03 AM CDT Pulse 86 06/14/2021 9:03 AM CDT Temperature 36.7 C (98 F) 06/10/2019 4:24 AM CDT Respiratory Rate 16 06/14/2021 9:03 AM CDT Oxygen Saturation 97% 06/14/2021 9:03 AM CDT Inhaled Oxygen Concentration - - Weight 51.5 kg (113 lb 9.6 oz) 07/17/2021 10:00 AM CDT Height 165.1 cm (5' 5) 07/17/2021 10:00 AM CDT Body Mass Index 18.9 07/17/2021 10:00 AM CDT Plan of Treatment Health Maintenance Due Date Last Done Comments HIV SCREENING 2017 HPV VACCINE (1 - 3-dose series) 2017 CHLAMYDIA/GONORRHEA SCREENING 2018 MENINGOCOCCAL (Group B) VACC INE SHARED DECISION-MAKING (1 of 2 - Standard) 2018 DTAP/TDAP/TD VACCINES (1 - Tdap) 2021 HEPATITIS B VACCINE (1 of 3 - 19+ 3-dose series) 2021 COVID-19 VACCINE (1 - 2023-2 5 season) 2024 DEPRESSION SCREENING 11/03/2024 INFLUENZA VACCINE (#1) 2025 ZOSTER VACCINE (1 of 2) 2052 HEPATITIS C SCREENING Completed 06/14/2021 HIB VACCINE Aged Out No longer eligi ble based on patient's age to complete this topic MENINGOCOCCAL GROUPS A/C/Y/W VACCINE Aged Out No longer eligible b ased on patient's age to complete this topic PNEUMOCOCCAL VACCINE Aged Out No long er eligible based on patient's age to complete this topic Procedures Procedure Name Priority Date/Time Associated Diagnosis Comments HEPATITIS SCREEN ACUTE 06/14/2021 8:01 AM CDT from Last 3 Months or Most Recently Relevant to Health Maintenance Results * HEPATITIS SCREEN ACUTE (06/14/2021 8:01 AM CDT) Hepatitis A Virus Antibody IgM NON-REACTI VE NON-REACT [facility] Comment: For additional information, please refer to http://education.Glowpoint.com/faq/HJW911 (This link is being provided for informational/ educational purposes only.) Hepatitis B Virus Surface Antigen NON-REACTI VE NON-REACT [facility] Hepatitis B Core Virus Antibody IgM NON-REACTI VE NON-REACT [facility] Hepatitis C Antibody NON-REACTI VE NON-REACT [facility] Signal to Cut-Off 0.01 <1.00 [facility] Comment: HCV antibody was non-reactive. There is no laboratory evidence of HCV infection. In most cases, no further action is required. However, if recent HCV exposure is suspected, a test for HCV RNA (test code 67009) is suggested. For additional information please refer to http://education.farmflo/faq/BVV76n5 (This link is being provided for informational/ educational purposes only.) Test Performed at: [facility] [id number] [place] [address] ML DREW DO,MPH 06/14/2021 8:01 AM CDT 06/14/2021 8:02 AM CDT Sharif Elise MD LAB - CHEMISTRY ORDERABLES Final Result [facility] [address] [place] [address] from Last 3 Months or Most Recently Relevant to Health Maintenance Insurance [facility] Advance Directives * Full Code (Latest Code Status on File) Date Activated Date Inactivated Comments 08/18/2018 11:05 PM 08/20/2018 2:08 PM Care Teams Rail Specialist Relationship Specialty Start Date End Date Alicia Barrios MD [address] [place] [address] PCP - General Pediatrics 03/23/15
--- OUTSIDE RECORDS SUMMARY | 2025-05-26 18:31 | XMS_ITS | Encounter Summary ---
Author Organization [facility] Address [address] [place] [address] Care Team Providers Care Farm Consultant Name Role Phone Alicia Barrios MD Primary Care Provider [phone] Encounter Details Date Type Department Care Team (Late st Contact Info) Description 08/18/[address] 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
--- OUTSIDE RECORDS SUMMARY | 2025-05-26 18:31 | XMS_ITS | Clinical Summary ---
Author Organization [facility] Address [address] [facility] [[email or web address] [address] [place] [address] Phone Care Team Providers Care Textile Finisher Name Role Phone Unavailable Primary Care Provider Unavailabl e Allergies No known active allergies Medications No known medications Active Problems Problem Noted Date Diagnosed Date Vision loss of left eye 08/18/2018 Overview (04/24/2023): Glo was initially admitted from 08/18/18-08/20/18 after [...] symptoms and advised on headache lifestyle modification Closed fracture of shaft of radius with ulna 08/2011 Family History Medical History Relation Name Comments Migraines Maternal Grandmother Stephanie Mascorro Migraines Mother Celia Mascorro Relation Name Status Comments Maternal Grandmother Stephanie Mascorro Mother Celia Washingtonffer Social History Tobacco Use Types Packs/Day Years Used Date Smoking Tobacco: Never Smokeless Tobacco: Never Tobacco Cessation:Counseling Given: Yes Alcohol Use Standard Drinks/Week Comments Not Currently 0 (1 standard drink = 0.6 oz pur e alcohol) Education Answer Date Recorded What is the highest level of school you have completed or the highest degree you have received? 10th grade 04/17/2023 Sexually Active Control Partners Comments Yes Implant Male Comments No Sex and Gender Information Value Date Recorded Sex Assigned at Not on file Legal Sex Female 7:06 AM CDT Gender Identity Not on file Sexual Orientation Not on file Last Filed Vital Signs Vital Sign Reading Time Taken Comments Blood Pressure 112/64 06/24/2023 7:26 AM CDT Pulse 82 06/24/2023 7:26 AM CDT Temperature 36.6 C (97.8 F) 06/24/2023 7:26 AM CDT Respiratory Rate 14 06/24/2023 7:26 AM CDT Oxygen Saturation 96% 06/24/2023 7:26 AM CDT Inhaled Oxygen Concentration - - Weight 57.1 kg (125 lb 14.4 oz) 06/24/2023 7:26 AM CDT Height 162.6 cm (5' 4) 06/24/2023 7:26 AM CDT Body Mass Index 21.61 06/24/2023 7:26 AM CDT Plan of Treatment Health Maintenance Due Date Last Done Comments Hepatitis C Virus (HCV) Screening 2002 TdaP Immunization 2002 Human Papillomavirus (HPV) Immunization (1 - 3-dose series) 2017 Meningococcal B Immunization (1 of 2 - Standard) 2018 Hepatitis B Immunization (1 of 3 - 19+ 3-dose series) 2021 Pap Smear 2023 SARS-COV-2 Immunization ( - 2023- season) 2024 Influenza Immunization (#1) 2025 Respiratory Syncytial Virus (RSV) Immunization (Adult) (1 - 1-dose 75+ series) 2077 Meningococcal Immunization (ACWY) Aged Out No longer eligible based on patient's age to complete this topic Pneumococcal Immunization Combined Aged Out No longer eligible based on patient's age to complete this topic Rotavirus Immunization Aged Out No lo nger eligible based on patient's age to complete this topic Insurance MEDICAID [place]
--- OUTSIDE RECORDS SUMMARY | 2025-05-26 18:31 | XMS_ITS | Encounter Summary ---
Author Organization [facility] Address [address] [place] [address] Care Team Providers Care Pharmaceutical Worker Name Role Phone Alicia Barrios MD Primary Care Provider [phone] Encounter Details Date Type Department Care Team (Late st Contact Info) Description 08/19/2018 Ophth Exam [facility] Pediatrics - Ophthalmology [address] [place] [address] Aubrey Arias MD [address] [place] [address] Social History Tobacco Use Types Packs/Day Years Used Date Smoking Tobacco: Never Smokeless Tobacco: Never Alcohol Use Standard Drinks/Week Comments No 0 (1 standard drink = 0.6 oz pur e alcohol) Comments No Sex and Gender Information Value Date Recorded Sex Assigned at Not on file 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 Answer Date of Assessment Author No 08/18/2018 11:09 PM CDT Jasmin De Los Santos RN * Is person blind or have serious difficulty seeing? Answer Date of Assessment Author No 08/18/2018 11:09 PM Jasmin Barraza RN * Does person have serious difficulty walking/climbing stairs? Answer Date of Assessment Author No 08/18/2018 11:09 PM Jasmin Barraza RN * Does person have difficulty dressing/bathing? Answer Date of Assessment Author No 08/18/2018 11:09 PM NITHINT Jasmin De Los Santos RN * Does person have difficulty doing errands alone? Answer Date of Assessment Author No 08/18/2018 11:09 PM Jasmin Barraza RN documented as of this encounter Mental Status * Does person have difficulty concentrating/remembering/making decisions? Answer Entry Date Author No 08/18/2018 11:09 PM Jasmin Barraza RN documented in this encounter Plan of Treatment Not on file documented as of this encounter Visit Diagnoses Not on filedocumented in this encounter Care Teams Pharmaceutical Worker Relationship Specialty Start Date End Date Alicia Barrios MD [address] [place] [address] PCP - General Pediatrics 03/23/15 documented as of this encounter
[2025-05-26 19:44] LABS: Hematocrit 33.1 % (37.0-47.0); Hemoglobin 11.3 g/dL (12.0-15.0); Immature Granulocyte Percent A 0.5 % (0-0.5); Lymphocytes Absolute Auto 2.21 K/mm3 (0.9-3.2); Mean Corpuscular HGB Conc 34.1 g/dl (32-36); Mean Corpuscular Hemoglobin 32.3 pg (26-34); Mean Corpuscular Volume 94.6 fl (80-100); Nucleated Red Blood Cells Absolute Auto 0.000 K/mm3 (0.0-0.012); Nucleated Red Blood Cells Perc 0.0 % (0.0-0.2); Platelet Count Result 405 k/mm3 (150-375); Red Blood Count 3.50 M/mm3 (4.2-5.4); White Blood Count 8.8 K/mm3 (4.5-10.0)
[2025-05-26 20:28] LABS: Thyroid Stimulating Hormone 0.827 uIU/mL (0.465-4.680)
[2025-05-26 20:38] LABS: HIV 1/2 Ab P24 Ag Result Negative (Negative)
[2025-05-26] MEDS: fentaNYL CITRATE INJ (*CRX) 100 MCG/2 ML VIAL 50 MCG IV PUSH (20:53)
[2025-05-26 20:59] LABS: Hemoglobin A1C 4.5 % (<5.7)
[2025-05-26] MEDS: ONDANSETRON INJ 4 MG/2 ML VIAL IV PUSH (20:59)
[2025-05-26] MEDS: fentaNYL CITRATE INJ (*CRX) 100 MCG/2 ML VIAL IV PUSH ×2 (22:09→23:42)
[2025-05-26 22:40] LABS: Free T4 Free Thyroxine 1.26 ng/dL (0.78-2.19)
[2025-05-26 23:54] LABS: Syphilis IgG/IgM Antibody 0.01 S/C; Syphilis IgG/IgM Antibody Non-Reactive (Nonreactive)
[2025-05-27] VITALS (195 sets, daily range): BP systolic 80–133; BP diastolic 39–103; PULSE 59–148; TEMP 36.3–38.8; O2SAT 77–100
[2025-05-27] MEDS: ONDANSETRON INJ 4 MG/2 ML VIAL IV PUSH ×2 (01:13→11:01)
[2025-05-27] MEDS: fentaNYL CITRATE INJ (*CRX) 100 MCG/2 ML VIAL IV PUSH ×9 (01:14→11:51)
[2025-05-27 05:18] LABS: Hepatitis B Surface Antigen 0.06 S/C; Hepatitis B Surface Antigen Negative (Negative)
[2025-05-27] MEDS: ACETAMINOPHEN 500 MG TABLET 1000 MG PO (07:15)
[2025-05-27] MEDS: AMPICILLIN SODIUM 2 GM in SODIUM CHLORIDE 0.9% IV 100 ML 200 ML IVPB (07:16)
--- NOTE | 2025-05-27 08:07 | WPDOBADMIT ---
Obstetrics - Admit Note Admission Note: 24-year-old primigravid patient presents at 20 weeks by last menstrual period with demise. Presented for her anatomy scan in the office and was found to be 17 weeks with no cardiac activity. Patient had not been feeling any consistent movement so not feeling movement recently was not a significant change for her. she also had no bleeding or discharge or any other significant abnormalities that would be of concern, all of her care to this point had been normal. Multiple options were discussed and she decided to initiate Cytotec induction. explained to patient that she would still need to deliver vaginally, potential D&C for retained placenta not uncommon in this clinical situation. Patient states good understanding and will proceed. record reviewed. No pertinent additions to the history and/or any subsequent changes in the physical findings that are not consistent with the expected course of the were found. Additions to the history and/or subsequent changes in the physical findings follow. None.
--- NOTE | 2025-05-27 08:09 | WPDHPUPDATE1 ---
History and Physical Update Update Date/Time: 05/27/25 08:09 History and Physical has been reviewed, including an updated exam of the patient. There are NO changes in the patient's condition. Risks, benefits, and alternatives have been discussed and questions answered. Patient agrees to proceed with procedure.
[2025-05-27] MEDS: AMPICILLIN SODIUM 1 GM in SODIUM CHLORIDE 0.9% IV 50 ML 100 ML IVPB (11:25)
--- NOTE | 2025-05-27 11:38 | S_PTH ---
PATIENT: Glo Mascorro LOC: [facility] U#:[id number] AGE/SX: 24/F ROOM: 110 RE05/26/[address]: Jose Martin Wade MD : 2000 BED: 00 DIS: 05/27/2025 SPEC #: [id number] RECD: 05/30/25 09:50 STATUS: ALECIA REQ #: [id number] THERESA: 05/27/25 11:[address]: Jose Martin Wade DEPT: [facility] Surgical RECD BY: Terese Damian ENTERED: 05/30/25 09:50 SP TYPE: Surgical OTHR DR: UNKNOWN,DOCTOR Tissues: A - Placenta Procedures: Hematoxylin and Eosin Stain Gross and Microscopic Level 5
--- NOTE | 2025-05-27 11:46 | PM.OBPRVD ---
OB - Vaginal Delivery Note Procedure Delivery date: 05/27/25 Events: Other (IUFD) Induction method: Per Misoprostol Protocol Delivery monitor: None Route of delivery: Episiotomy description: None Laceration Description: None Specimen: Yes Quantitative Blood Loss (ml): 300 Anesthesia type: IV sedation Disposition: Floor Complications: No immediate complications Narrative: Patient prepped in usual manner for this particular procedure. Fetus was noted to be in the vagina and with 1 push delivered readily. Further pushing delivered placenta intact. No significant bleeding. No lacerations or tears. Patient will be monitored for 6 8hours and if no bleeding or other issues will be discharged to follow-up in 2 weeks. Baby Gestational Age by Date: 17 Placenta delivery description: Spontaneous
--- NOTE | 2025-05-27 11:53 | P.DS_ITS ---
DS: Admitting Diagnosis Discharge Date 05/27/2025 Admitting Diagnosis 17 week demise DS: Discharge Diagnosis Discharge Diagnosis (1) Missed with demise before 20 completed weeks of gestation: Code(s): O02.1 - Missed Status: Acute OB - DS: Summary OB Procedures : None OB Procedures Intrapartum: Spontaneous Vag Delivery OB Procedures: : None Peripartum Data Laceration Description: None Episiotomy description: None Time Spent with Patient Time attestation: Total time spent providing and/or coordinating discharge services: DS: Data Data Completed and Pending Labs on day of discharge: Labs from last 24 hours 05/26/25 05/26/25 05/26/25 18:55 18:55 18:55 WBC RBC Hgb Hct MCV MCH MCHC RDW Plt Count MPV Immature Gran % (Auto) Neut % (Auto) Lymph % (Auto) [place] % (Auto) Eos % (Auto) Baso % (Auto) Lymph # (Auto) [place] # (Auto) Eos # (Auto) Baso # (Auto) Abs Immat Gran (auto) Absolute Neuts (auto) Absolute Nucleated RBC Nucleated RBC % Lupus Anticoag aPTT dRVV Screen Lupus Anticoag Interp Hemoglobin A1c TSH Free T4 Beta-2 GPI IgG Ab Pending Beta-2 GPI IgM Ab Pending Beta-2 GPI IgA Ab Pending Anti-Cardiolipin IgG Ab Pending Pending Anti-Cardiolipin IgA Ab Pending Anti-Cardiolipin IgM Ab Pending Pending Syphilis IgG/IgM Ab Non-reactive CMV IgG Ab Pending CMV IgM Ab Pending Hep Bs Antigen Negative HSV1 IgG Type-Specific Ab Pending HSV2 IgG Type-Specific Ab Pending HIV 1&2 Ab/P24 Ag 4thGn Negative Parvovirus B19 IgG Ab Pending Parvovirus B19 IgM Ab Pending Rubella IgG Antibody 2.8 L Toxoplasma IgG Ab Pending Blood Type AB Positive Antibody Screen Negative 05/26/25 18:55 WBC 8.8 RBC 3.50 L Hgb 11.3 L D Hct 33.1 L MCV 94.6 MCH 32.3 MCHC 34.1 RDW 12.7 Plt Count 405 H MPV 9.2 Immature Gran % (Auto) 0.5 Neut % (Auto) 66.0 Lymph % (Auto) 25.1 [place] % (Auto) 6.9 Eos % (Auto) 1.0 Baso % (Auto) 0.5 Lymph # (Auto) 2.21 [place] # (Auto) 0.6 Eos # (Auto) 0.1 Baso # (Auto) 0.0 Abs Immat Gran (auto) 0.04 H Absolute Neuts (auto) 5.8 Absolute Nucleated RBC 0.000 Nucleated RBC % 0.0 Lupus Anticoag aPTT Pending dRVV Screen Pending Lupus Anticoag Interp Pending Hemoglobin A1c 4.5 TSH 0.827 Free T4 1.26 Beta-2 GPI IgG Ab Pending Beta-2 GPI IgM Ab Beta-2 GPI IgA Ab Anti-Cardiolipin IgG Ab Anti-Cardiolipin IgA Ab Anti-Cardiolipin IgM Ab Syphilis IgG/IgM Ab CMV IgG Ab CMV IgM Ab Hep Bs Antigen HSV1 IgG Type-Specific Ab HSV2 IgG Type-Specific Ab HIV 1&2 Ab/P24 Ag 4thGn Parvovirus B19 IgG Ab Parvovirus B19 IgM Ab Rubella IgG Antibody Toxoplasma IgG Ab Blood Type Antibody Screen Discharge Plan Discharge Attending physician on discharge: Jose Martin Wade Discharging Clinician: Jose Martin Wade Patient Disposition: Home Activity: as tolerated Diet: as tolerated Patient Instructions: Antibiotic Form Patient Language: Greenlandic Stand Alone Forms: General Discharge Information Follow-up/Referrals: Jose Martin Wade MD [Physician] - 2 Weeks Discharge Medications: New ibuprofen 600 mg tablet 600 mg PO TID Qty: 30 0RF Date of admission: 05/26/25 18:26 Primary Care Provider: UNKNOWN,DOCTOR Admitting Provider: Jose Martin Wade Attending physician on admission: Jose Martin Wade Condition: Stable
[2025-05-27] MEDS: IBUPROFEN 600 MG TABLET PO (13:28)
--- NOTE | 2025-05-27 14:05 | PC.NURSE ---
[facility] Home notified of demise. The hospital will be notify the home when the baby is ready to be transported.
[2025-05-27 17:46] LABS: Hematocrit 29.4 % (37.0-47.0); Hemoglobin 10.1 g/dL (12.0-15.0); Immature Granulocyte Percent A 0.4 % (0-0.5); Lymphocytes Absolute Auto 2.26 K/mm3 (0.9-3.2); Mean Corpuscular HGB Conc 34.4 g/dl (32-36); Mean Corpuscular Hemoglobin 32.6 pg (26-34); Mean Corpuscular Volume 94.8 fl (80-100); Nucleated Red Blood Cells Absolute Auto 0.000 K/mm3 (0.0-0.012); Nucleated Red Blood Cells Perc 0.0 % (0.0-0.2); Platelet Count Result 324 k/mm3 (150-375); Red Blood Count 3.10 M/mm3 (4.2-5.4); White Blood Count 15.9 K/mm3 (4.5-10.0)
[2025-05-28 05:07] LABS: HSV 1 IgG, Type Spec Reactive (Non Reactive); HSV 2 IgG, Type Spec Non Reactive (Non Reactive)
[2025-05-28 06:07] LABS: Cytomegalovirus (CMV) Ab, IgG 1.10 U/mL (0.00-0.59); Cytomegalovirus (CMV) Ab, IgM <30.0 AU/mL (0.0-29.9); Toxoplasma gondii Ab,IgG <3.0 IU/mL (0.0-7.1)
[2025-05-28 13:08] LABS: Anticardiolipin Ab,IgG,Qn <9 GPL U/mL (0-14); Anticardiolipin Ab,IgM,Qn <9 MPL U/mL (0-12)
[2025-05-29 13:08] LABS: PTT-LA 37.3 sec (0.0-43.5)
[2025-05-30 15:09] LABS: Anticardiolipin Ab,IgA,Qn <9 APL U/mL (0-11); Anticardiolipin Ab,IgG,Qn <9 GPL U/mL (0-14); Anticardiolipin Ab,IgM,Qn <9 MPL U/mL (0-12); Beta-2 Glycoprotein I Ab, IgA <9 (0-25); Beta-2 Glycoprotein I Ab, IgG <9 (0-20); Beta-2 Glycoprotein I Ab, IgM <9 (0-32)
== END 2025-05-27 19:15 | disposition home or self-care (01) | DRG 560 ==
PROVIDERS: Admitting Provider Obstetrics & Gynecology; Visit Provider Obstetrics & Gynecology
DX: O36.4XX0 Maternal care for intrauterine death, not applicable or unspecified (principal); O75.2 Pyrexia during labor, not elsewhere classified; Z3A.21 21 weeks gestation of pregnancy; Z37.1 Single stillbirth; O77.0 Labor and delivery complicated by meconium in amniotic fluid
CPT/HCPCS: 36415; 83036; 84439; 84443; 85025; 85732; 86146; 86147; 86593; 86644; 86645; 86695; 86696; 86703; 86762; 86777; 86850; 86900; 86901; 87340; 88307; A9270; G0432; J0290; J2405; J3010